=== PATIENT | female | born 1995 | race African-American/Black ===

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

== ENCOUNTER 2017-07-23 14:11 | Emergency (ER) | payer OTHER ==
--- NOTE | 2017-07-23 14:46 | ERNOTE ---
ER Female HPI Date of Service: 07/23/17 Stated Complaint: CRAMPING/BLEEDING Presenting Symptoms: vaginal bleeding Time Seen by Provider: 07/23/17 14:28 Source: patient, RN notes reviewed Exam Limitations: no limitations Immunizations: IMMUNIZATION HX Immunizations Up to Date Yes History of Influenza Vaccine No Hx Pneumococcal Vaccination No Allergies/Adverse Reactions: Allergies No Known Allergies Allergy (Verified 12/08/16 19:04) Home Medications: HOME MEDICATIONS NK [No Home Medication] 07/23/17 [Last Taken Unknown] - History of Present Illness Narrative: Sarah is a 22-year-old female who presents to the emergency department for vaginal bleeding and pelvic pain. She reports having a positive test 4 days ago. Her last period was approximately a month ago. She also had an IUD removed at about that time. She has had 2 pregnancies and 2 live births in the past. She is unsure of her Rh status. She reports that her bleeding is currently less then what a normal menstrual period would be. She has not yet had any care. Date (Duration): 07/23/17 Onset Location: Present: RLQ, suprapubic Radiation: Present: none Activities at Onset: Present: none Prior Abdominal Problems: Present: none Prior Treatment: Absent: recently seen Review of Systems - Review of Systems Constitutional: Absent: fever, chills, malaise EYE: Present: no symptoms reported ENT: Present: no symptoms reported Respiratory: Absent: shortness of breath, cough Cardiology: Absent: chest pain, palpitations, syncope Gastrointestinal/Abdominal: Present: abdominal pain. Absent: nausea, vomiting Genitourinary: Absent: frequency, dysuria Musculoskeletal: Present: back pain, muscle pain. Absent: joint pain Skin: Absent: lesions, lumps Neurological: Absent: headache, dizziness/light-headedness Endocrine: Present: no symptoms reported Hematologic/Lymphatic: Absent: easy bruising, easy bleeding Psych: Present: no symptoms reported - Patient's Past Medical History Patient History - Medical: No pertinent hx Patient History - Cardiac/Respiratory: Other Patient History - Cancer: No Hx of Cancer Patient History - Surgical Procedures: No surgical history Patient History - Other: None LMP (females 10-50): 1 month - Social History Living Situations: significant other Psych History: No pertinent hx Smoking Status: Current every day smoker Have you smoked in the past 12 months: Yes Do you dip or chew tobacco: No Alcohol Use: none Drug Use: none - Immunizations Immunizations Up to Date: Yes Hx Pneumococcal Vaccination: No History of Influenza Vaccine: No Physical Exam - Physical Exam General Appearance: Present: wd/wn, alert, no apparent distress Head Exam: Present: normal inspection Eye Exam: Normal inspection: bilateral Neck: Present: normal inspection, nontender, supple, full range of motion Respiratory: Present: no respiratory distress, normal breath sounds, no accessory muscle use, lungs clear Cardiovascular/Chest: Present: regular rate, rhythm, no murmur, normal peripheral pulses Gastrointestinal/Abdominal: Present: normal bowel sounds, nondistended, soft, tenderness - Mild, RLQ and suprapubic region. Absent: guarding, rebound, mass Pelvic Exam: Present: deferred Back Exam: Present: normal inspection, normal range of motion, no CVA tenderness Extremity Exam: Present: normal inspection Neurological Exam: Present: alert, oriented, normal mood/affect, no motor/ sensory deficits Skin Exam: Present: normal color, warm/dry ED Progress - Results and Orders Patient's Lab Results:: I have reviewed the patient's lab results. - Vital Signs Patient's Vital Signs:: I have reviewed the patient's vital signs. Vital Signs: Vital Signs 07/23/17 14:19 Temperature 36.7 C Pulse Rate 90 Respiratory 14 Rate Blood Pressure 132/83 O2 Sat by Pulse 99 Oximetry - Progress/Reassessment Chief Complaint: Genitourinary Problem Progress:: Unchanged Plan - Plan Plan: The patient is not as her HCG level is 0. Pelvic exam was deferred as the patient reports that her bleeding was not excessively heavy. I suspect that her bleeding is actually her menses, despite her claims that "this is different, " particularly since she had her IUD removed approximately a month ago. Departure Clinical Impression: Vaginal bleeding, abnormal - Departure Disposition: Home Follow Up Needed Condition: Good Instructions: Abnormal Uterine Bleeding Additional Instructions: Return for heavy bleeding as in saturating a pad an hour for 2 hours in a row or passing clots the size of a lemon or larger Contact her OB doctor's office regarding your hCG level of 0 indicating that you are not Ibuprofen for pain
[2017-07-23 14:56] LABS: Hematocrit 39.9 % (37.0-47.0); Hemoglobin 13.9 gm/dL (12.5-16.0); Mean Cell Volume 90.7 fl (78-100); Mean Corpuscular Hemoglobin 31.6 pg (27-31); Mean Corpuscular Hgb Conc 34.8 g/dl (32-36); Mean Platelet Volume 8.4 fl (6.0-9.5); Neutrophil % 46.9 % (42-75.0); Platelet Count 376 K/mm3 (150-450); Red Cell Distribution Width 12.1 % (11.5-14.0); White Blood Count 8.5 K/mm3 (4.0-10.5)
[2017-07-23 16:13] VITALS: BP 125/72
== END 2017-07-23 16:11 | disposition home or self-care (01) ==
LOC: ER 14:11
DX: N93.9 Abnormal uterine and vaginal bleeding, unspecified (principal); F17.200 Nicotine dependence, unspecified, uncomplicated